=== PATIENT | male | born 1975 | race Caucasian/White ===

== ENCOUNTER 2021-08-17 08:12 | Emergency (ER) | payer MEDICAID ==
[~2021-08-17] VITALS: Ht 172.7 cm; Wt 61.0 kg
[2021-08-17] MEDS ORDERED: IBUPROFEN 400MG TABLET PO ONE (08:45)
[2021-08-17 10:00] VITALS: BP 129/66
== END 2021-08-17 10:09 | disposition home or self-care (01) ==
LOC: ER 08:12
DX: R07.81 Pleurodynia (principal); J45.909 Unspecified asthma, uncomplicated; Z87.19 Personal history of other diseases of the digestive system; Y08.89XA Assault by other specified means, initial encounter; Y07.410 Brother, perpetrator of maltreatment and neglect; Y93.89 Activity, other specified; Y92.018 Other place in single-family (private) house as the place of occurrence of the external cause
CPT/HCPCS: 71045; 99283